=== PATIENT | male | born 1990 | race Asian ===

== ENCOUNTER 2016-11-02 20:47 | Emergency (ER) | payer SELFPAY ==
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
[2016-11-02] MEDS ORDERED: CYCLOBENZAPRINE HCL 10 MG TABLET ONE (21:52)
[2016-11-02] MEDS ORDERED: IBUPROFEN 600 MG TABLET ONE (21:52)
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
== END 2016-11-02 22:14 | disposition home or self-care (01) ==
LOC: EDBD 20:47 → ED 20:47
DX: S13.4XXA Sprain of ligaments of cervical spine, initial encounter (principal); S33.9XXA Sprain of unspecified parts of lumbar spine and pelvis, initial encounter; S73.102A Unspecified sprain of left hip, initial encounter; F10.129 Alcohol abuse with intoxication, unspecified; V48.0XXA Car driver injured in noncollision transport accident in nontraffic accident, initial encounter; Y92.410 Unspecified street and highway as the place of occurrence of the external cause